=== PATIENT | male | born 1935 | race Caucasian/White ===

== ENCOUNTER 2019-01-27 23:08 | Emergency (ER) | payer OTHER, MEDICAID ==
[~2019-01-27] VITALS: Ht 172.7 cm; Wt 65.5 kg
[2019-01-27 23:10] VITALS: Ht 172.7 cm; Wt 65.5 kg
--- NOTE | 2019-01-28 01:44 | ERD ---
ER Documentation Chief Complaint Chief Complaint HUYEN from [facility],sent for fever,[id number]-[id number],rec'd tylenol at 1900 HPI This is an 83-year-old male with a past medical history of hypertension, hyperlipidemia, diabetes, chronic hypoxic respiratory failure status post tracheostomy with ventilator dependence secondary to complications from sepsis, dysphagia status post G-tube placement who is presenting with concerns of waxing and waning mentation and fever today. The facility reportedly gave him Tylenol this afternoon. He is currently afebrile. The patient is mentating well at this time. He has no complaints. ROS All systems reviewed and are negative except as per history of present illness. Allergies Allergies: Coded Allergies: No Known Allergy (Unverified , 01/27/19) PMhx/Soc Medical and Surgical Hx: pt denies Surgical Hx History of Surgery: Yes (PROSTATE tracheostomy, G-tube placement, ) Anesthesia Reaction: No Hx Neurological Disorder: No Hx Respiratory Disorders: Yes (Chronic respiratory failure status post tracheostomy) Hx Cardiac Disorders: Yes (HTN, HEART DISEASE) Hx Psychiatric Problems: No Hx Miscellaneous Medical Probl: Yes (DM II, ANXIETY) Hx Alcohol Use: No Hx Substance Use: No Hx Tobacco Use: Yes Smoking Status: Former smoker FmHx Family History: No diabetes Physical Exam Vitals Vital Signs Date Temp Pulse Resp B/P (MAP) Pulse Ox O2 O2 Flow FiO2 Time Delivery Rate 01/27/19 76 14 120/44 99 BIPAP 23:30 (69) 01/27/19 98.4 86 19 134/50 100 23:10 (78) 01/27/19 84 19 98 40 23:10 Physical Exam Const: No apparent distress, well-developed, well-nourished Head: Normocephalic, Atraumatic Eyes: Normal Conjunctiva. Extraocular movements intact. Pupils equal, round and reactive to light ENT: Normal External Ears, Nose. Dry mucous membranes. Neck: Tracheostomy in place. Resp: Bibasilar rales. No wheezes or rhonchi Cardio: Regular rate and rhythm. No murmurs, rubs or gallops Abd: Soft, non tender, non distended. G-tube in place. Normal bowel sounds Skin: No petechiae or rashes Back: No midline tenderness. No CVA tenderness Ext: No cyanosis, or edema Neur: Awake and alert. Cranial nerves grossly intact. No facial droop. No obvious focal deficits. Psych: Normal Mood and Affect Result Diagram: 01/28/19 0040 01/28/19 0040 Results 24 hrs Laboratory Tests Test 01/28/19 00:40 White Blood Count 9.6 10^3/ul Red Blood Count 2.67 10^6/ul Hemoglobin 7.0 g/dl Hematocrit 23.7 % Mean Corpuscular Volume 88.8 fl Mean Corpuscular Hemoglobin 26.2 pg Mean Corpuscular Hemoglobin Concent 29.5 g/dl Red Cell Distribution Width 20.5 % Platelet Count 110 10^3/UL Mean Platelet Volume 10.8 fl Immature Granulocytes % 0.700 % Neutrophils % 73.7 % Lymphocytes % 8.4 % Monocytes % 17.0 % Eosinophils % 0.0 % Basophils % 0.2 % Nucleated Red Blood Cells % 0.0 /100WBC Immature Granulocytes # 0.070 10^3/ul Neutrophils # 7.1 10^3/ul Lymphocytes # 0.8 10^3/ul Monocytes # 1.6 10^3/ul Eosinophils # 0.0 10^3/ul Basophils # 0.0 10^3/ul Nucleated Red Blood Cells # 0.0 10^3/ul Sodium Level 134 mmol/L Potassium Level 4.7 mmol/L Chloride Level 92 mmol/L Carbon Dioxide Level 29 mmol/L Anion Gap 13 Blood Urea Nitrogen 68 mg/dl Creatinine 2.86 mg/dl Est Glomerular Filtrat Rate mL/min mL/min Glucose Level 279 mg/dl Calcium Level 9.1 mg/dl Procedures/MDM MDM The patient's presentation warrants further investigation. Previous medical records, if available, were reviewed. LABS The patient's laboratory testing was obtained and reviewed. No emergent treatment was required unless described below. CBC: No E/o systemic infection. Normocytic anemia. Thrombocytopenia. Chemistry: No E/o severe acidosis or alkalosis. Hyperglycemia without diabetic ketoacidosis. Elevated BUN and creatinine in line with his known end- stage renal disease. Urine: Pending Influenza: Negative IMAGING Imaging and Radiology interpretation reviewed. CXR FINDINGS: There is a tracheostomy tube in place. There is tubing and electrodes overlying the chest x-ray limiting evaluation. There is a right internal jugular catheter with the tip at the right atrial level. The cardiomediastinal silhouette is enlarged. There is cabv-lc-hrrzklym pulmonary vascular congestion. There are qqoh-jr-nqdnvgdc bilateral pleural effusions with associated lower lung zone compressive atelectasis. There is no evidence for pneumothorax. The osseous structures are intact. IMPRESSION: 1. Tracheostomy tube. 2. Right internal jugular central line with the tip at the right atrial level. 3. Pulmonary vascular congestion. 4. Erjx-df-zkszrauq bilateral pleural effusions with associated compressive atelectasis. Electronically viewed and signed by Kiko Presley MD, MD on 01/28/2019 01:49 TREATMENT/DISPOSITION The patient presents for concerns of waxing and waning altered mentation and fever. The patient is not confused on my exam. The patient is also afebrile here, but he did receive Tylenol prior to arrival. The patient's vitals are normal. He has no leukocytosis. I have not found any evidence of an infectious etiology. The patient was not able to provide a urine sample, but he does have end-stage renal disease and is on dialysis. A viral syndrome is certainly a possibility. The patient's influenza study is negative. I do not see evidence of pneumonia. I do not see evidence of a soft tissue infection. The patient is not septic. I do not feel the patient warrants a septic workup at this time. The patient does have a normocytic anemia, but he does not have findings concerning for symptomatic anemia. I discussed the case with [facility], and the patient's hemoglobin is dropped from over 10 earlier in the month. This is a significant drop. While I do not see evidence of emergent acute blood loss anemia, I do feel that the patient may benefit from further assessment in the hospital. ADMISSION At this time, I feel that the patient requires admission for further evaluation and management. I do feel the patient is stable for transfer. I discussed the case with [facility], Dr. Esquivel, who accepted the patient to [facility]. Authorization number: [id number] Disclaimer: Inadvertent spelling and grammatical errors are likely due to EHR/dictation software use and do not reflect on the overall quality of patient care. Note that the electronic time recorded on this note does not necessarily reflect the actual time of the patient encounter. Departure Diagnosis: Primary Impression: Normocytic anemia Additional Impressions: Fever Fever type: unspecified Qualified Codes: R50.9 - Fever, unspecified Thrombocytopenia End stage renal disease on dialysis Hyperglycemia Condition: Serious WEI FITCH MD Jan 28, 2019 01:44
[2019-01-28 04:06] VITALS: BP 123/61; PULSE 78; RESP 20
[2019-01-28] MEDS ORDERED: LORA10CA GTB (04:13)
[2019-01-28] MEDS ORDERED: HYDR-3671 GTB (04:13)
[2019-01-28] MEDS ORDERED: ALBU2.5V3 NEB (04:13)
[2019-01-28] MEDS ORDERED: AMLO-147 GTB (04:13)
[2019-01-28] MEDS ORDERED: LORA0.5T GTB (04:13)
[2019-01-28] MEDS ORDERED: VIT1TAB.4 GTB (04:13)
[2019-01-28] MEDS ORDERED: CITA10TA10 GTB (04:13)
[2019-01-28] MEDS ORDERED: INSU100V3 IJ (04:13)
[2019-01-28] MEDS ORDERED: ATOR40TA68 GTB (04:13)
[2019-01-28] MEDS ORDERED: ASPI-535 GTB (04:13)
[2019-01-28] MEDS ORDERED: PETR113O TOP (04:13)
[2019-01-28] MEDS ORDERED: ACET160O41 GTB (04:13)
[2019-01-28] MEDS ORDERED: ERGO2000 GTB (04:13)
[2019-01-28] MEDS ORDERED: HYDR-4011 GTB (04:13)
[2019-01-28] MEDS ORDERED: GABA100C GTB (04:13)
[2019-01-28] MEDS ORDERED: ZINC220C5 GTB (04:13)
== END 2019-01-28 05:11 | disposition home or self-care (01) ==
LOC: E/R 23:08
DX: D69.6 Thrombocytopenia, unspecified (principal); D64.9 Anemia, unspecified; I12.0 Hypertensive chronic kidney disease with stage 5 chronic kidney disease or end stage renal disease; N18.6 End stage renal disease; E11.22 Type 2 diabetes mellitus with diabetic chronic kidney disease; E11.65 Type 2 diabetes mellitus with hyperglycemia; Z87.891 Personal history of nicotine dependence; Z99.2 Dependence on renal dialysis
CPT/HCPCS: 71045; 80048; 85025; 87400; 94002; 94003